=== PATIENT | female | born 1985 | race African-American/Black ===

== ENCOUNTER 2016-10-19 09:51 | Emergency (ER) | payer SELFPAY ==
[~2016-10-19] VITALS: Ht 152.4 cm; Wt 47.6 kg
[2016-10-19] MEDS ORDERED: 0.9 % SODIUM CHLORIDE 10 ML DISP.SYRIN. IV PRN (10:30)
[2016-10-19] MEDS ORDERED: HYDROmorphone 2 MG/ML VIAL IV/SQ PRN (10:30)
[2016-10-19] MEDS ORDERED: KETOROLAC TROMETHAMINE 30 MG/ML INJ. IV ONE (10:30)
[2016-10-19] MEDS ORDERED: IV NORMAL SALINE 1000ML BAG 1,000 ML IV SCH (10:30)
[2016-10-19] MEDS ORDERED: ONDANSETRON PF 4 MG/2 ML VIAL. IV ONE (10:30)
[2016-10-19 10:56] LABS: BASO % 1 % (0-3); EOS % 1 % (0-3); HEMATOCRIT 33.1 % (36.0-47.0); HEMOGLOBIN 11.2 g/dL (12.0-15.5); LYMPH # 1.9 x10^3/uL (1.0-4.8); LYMPH % 21 % (24-48); MEAN CORPUSCULAR HEMOGLOBIN 27 pg (25-35); MEAN CORPUSCULAR HGB CONC 34 g/dL (31-37); MEAN CORPUSCULAR VOLUME 79 fL (79-100); MONO % 8 % (0-9); NEUT % 70 % (31-73); PLATELET COUNT 283 x10^3/uL (140-400); WHITE BLOOD COUNT 9.2 x10^3/uL (4.0-11.0)
[2016-10-19 10:58] LABS: CREATININE 0.7 mg/dL (0.6-1.0); GFR 118.9; POTASSIUM 3.9 mmol/L (3.5-5.1)
[2016-10-19 11:04] LABS: ALBUMIN 3.6 g/dL (3.4-5.0); ALBUMIN/GLOBULIN RATIO 0.9 (1.0-1.7); TOTAL BILIRUBIN 0.2 mg/dL (0.2-1.0); TOTAL PROTEIN 7.4 g/dL (6.4-8.2)
[2016-10-19 11:24] LABS: BILIRUBIN,URINE NEGATIVE (NEG); GLUCOSE,URINE NEGATIVE (NEG); NITRITE,URINE NEGATIVE (NEG); PROTEIN,URINE NEGATIVE (NEG-TRACE); UROBILINOGEN,URINE 0.2 mg/dL (0.2 mg/dL)
[2016-10-19 11:36] LABS: BACTERIA,URINE FEW /HPF (0-FEW); RBC,URINE 0 /HPF (0-2); SQUAMOUS EPITHELIAL CELL,UR MOD /LPF; WBC,URINE OCC /HPF (0-4)
--- NOTE | 2016-10-19 11:39 | PHYS DOC ---
Past Medical History Past Medical History: No Pertinent History, Other Additional Past Medical Histor: ENDOMETRIOSIS Past Surgical History: No Surgical History Alcohol Use: Occasionally Drug Use: Marijuana Adult General Chief Complaint Chief Complaint: ABDOMINAL PAIN HPI HPI Patient is a pleasant 31-year-old non female who presents with abdominal pain that began 2 days ago prior to arrival. It is described as sharp and stabbing and the left lower quadrant discomfort progressively worse. She describes some nausea without vomiting, no diarrhea no constipation no UTI symptoms no vaginal bleeding or discharge. She describes some urgency without dysuria but frequency. She denies any vaginal trauma, back trauma or other symptoms. She also denies any fevers, chills or other symptoms. She also denies any travel, recent antibiotic use or sexual activity. Her last missed period was last week. Her pain is described as sharp and stabbing presently a 9 of 10 with no radiation. Nothing really makes it worse or better. He is not change with food, position or oral medications. Review of Systems Review of Systems Constitutional: Denies fever or chills [] Eyes: Denies change in visual acuity, redness, or eye pain [] HENT: Denies nasal congestion or sore throat [] Respiratory: Denies cough or shortness of breath [] Cardiovascular: No additional information not addressed in HPI [] GI: She complains primarily of abdominal pain with no nausea no vomiting no diarrhea no fevers or chills : He does complain of urgency and frequency without dysuria. Musculoskeletal: She does complain of left flank pain without radiation to the back. Integument: Denies rash or skin lesions [] Neurologic: Denies headache, focal weakness or sensory changes [] Endocrine: Denies polyuria or polydipsia [] Current Medications Current Medications Current Medications Medications (Trade) Dose Ordered Sig/Irma Start Time Stop Time Status Last Admin Dose Admin Hydromorphone HCl (Dilaudid) 1 mg PRN Q15MIN PRN 10/19/16 10:30 10/20/16 10:29 10/19/16 10:48 1 MG Ketorolac Tromethamine (Toradol) 30 mg 1X ONCE 10/19/16 10:30 10/19/16 10:36 DC 10/19/16 10:48 30 MG Ondansetron HCl (Zofran) 4 mg 1X ONCE 10/19/16 10:30 10/19/16 10:36 DC 10/19/16 10:48 4 MG Sodium Chloride (Normal Saline Flush) 10 ml QSHIFT PRN 10/19/16 10:30 Allergies Allergies Allergies Coded Allergies Type Severity Reaction Last Updated Verified No Known Drug Allergies 09/01/13 No Physical Exam Physical Exam Her vital signs evaluated and were reviewed by me demonstrated hypertension no other abnormalities. Constitutional: Well developed, well nourished, no acute distress, non-toxic appearance. [] HENT: Normocephalic, atraumatic, bilateral external ears normal, oropharynx moist, no oral exudates, nose normal. [] Eyes: PERRLA, EOMI, conjunctiva normal, no discharge. [] Cardiovascular:Heart rate regular rhythm, no murmur [] Lungs & Thorax: Bilateral breath sounds clear to auscultation [] Abdomen: Patient is marked tenderness to the left lower quadrant without CVA tenderness to palpation with no guarding rebound or organomegaly. She got no Baker's or McBurney's point tenderness palpation. She demonstrates no De Leon Booth sign or pulsatile mass. Skin: Warm, dry, no erythema, no rash. [] Back: No tenderness, no CVA tenderness. [] Extremities: No tenderness, no cyanosis, no clubbing, ROM intact, no edema. [] Neurologic: Alert and oriented X 3, normal motor function, normal sensory function, no focal deficits noted. [] Psychologic: She is very anxious but normal judgment. Current Patient Data Vital Signs Vital Signs Date Time Temp Pulse Resp B/P (MAP) Pulse Ox O2 Delivery O2 Flow Rate FiO2 10/19/16 10:00 97.6 98 20 138/77 (97) 98 Room Air 97.6 Lab Values Laboratory Tests Test 10/19/16 09:10 10/19/16 09:58 10/19/16 10:15 POC Urine HCG, Qualitative Hcg negative (Negative) Urine Collection Type Void Urine Color Yellow Urine Clarity Clear Urine pH 6.0 Urine Specific [place] 1.020 Urine Protein Negative mg/dL (NEG-TRACE) Urine Glucose (UA) Negative mg/dL (NEG) Urine Ketones (Stick) Negative mg/dL (NEG) Urine Blood Negative (NEG) Urine Nitrite Negative (NEG) Urine Bilirubin Negative (NEG) Urine Urobilinogen Dipstick 0.2 mg/dL (0.2 mg/dL) Urine Leukocyte Esterase Negative (NEG) Urine RBC 0 /HPF (0-2) Urine WBC Occ /HPF (0-4) Urine Squamous Epithelial Cells Mod /LPF Urine Bacteria Few /HPF (0-FEW) Urine Mucus Mod /LPF White Blood Count 9.2 x10^3/uL (4.0-11.0) Red Blood Count 4.20 x10^6/uL (3.50-5.40) Hemoglobin 11.2 g/dL (12.0-15.5) L Hematocrit 33.1 % (36.0-47.0) L Mean Corpuscular Volume 79 fL (79-100) Mean Corpuscular Hemoglobin 27 pg (25-35) Mean Corpuscular Hemoglobin Concent 34 g/dL (31-37) Red Cell Distribution Width 17.0 % (11.5-14.5) H Platelet Count 283 x10^3/uL (140-400) Neutrophils (%) (Auto) 70 % (31-73) Lymphocytes (%) (Auto) 21 % (24-48) L Monocytes (%) (Auto) 8 % (0-9) Eosinophils (%) (Auto) 1 % (0-3) Basophils (%) (Auto) 1 % (0-3) Neutrophils # (Auto) 6.4 x10^3uL (1.8-7.7) Lymphocytes # (Auto) 1.9 x10^3/uL (1.0-4.8) Monocytes # (Auto) 0.7 x10^3/uL (0.0-1.1) Eosinophils # (Auto) 0.1 x10^3/uL (0.0-0.7) Basophils # (Auto) 0.0 x10^3/uL (0.0-0.2) Sodium Level 139 mmol/L (136-145) Potassium Level 3.9 mmol/L (3.5-5.1) Chloride Level 103 mmol/L (98-107) Carbon Dioxide Level 26 mmol/L (21-32) Anion Gap 10 (6-14) Blood Urea Nitrogen 13 mg/dL (7-20) Creatinine 0.7 mg/dL (0.6-1.0) Estimated GFR (Cockcroft-Gault) 118.9 BUN/Creatinine Ratio 19 (6-20) Glucose Level 95 mg/dL (70-99) Calcium Level 9.0 mg/dL (8.5-10.1) Total Bilirubin 0.2 mg/dL (0.2-1.0) Aspartate Amino Transferase (AST) 17 U/L (15-37) Alanine Aminotransferase (ALT) 10 U/L (14-59) L Alkaline Phosphatase 63 U/L (46-116) Total Protein 7.4 g/dL (6.4-8.2) Albumin 3.6 g/dL (3.4-5.0) Albumin/Globulin Ratio 0.9 (1.0-1.7) L Lipase 142 U/L (73-393) Laboratory Tests 10/19/16 10:15 Laboratory Tests 10/19/16 10:15 EKG EKG [] Radiology/Procedures Radiology/Procedures [] [address] [place] [address] IMAGING REPORT Signed PATIENT: ISSA SHAY ACCOUNT: [id number] : 1985 LOCATION: ER AGE: 31 SEX: F EXAM STATUS: REG ER ORD. PHYSICIAN: JENNY SHEPARD MD REASON: left flank pain PROCEDURE: CT ABDOMEN PELVIS WO CONTRAST One or more of the following individualized dose reduction techniques were utilized for this examination: 1. Automated exposure control 2. Adjustment of the mA and/or kV according to patient size 3. Use of iterative reconstruction technique CT abdomen and pelvis without contrast. History: Left flank pain CT scan of the abdomen and pelvis was done without contrast. Lung bases are clear. There is no pleural effusion. There is mild scoliosis. Liver is normal in appearance. There is no calcified gallstone. Spleen and adrenal glands are unremarkable. A definite pancreatic lesion is not evident. There is no intrarenal calculus. There is no hydronephrosis. Bowel pattern is normal. Appendix is normal. There is a trace of free fluid in the pelvis which is nonspecific. There is a small follicle in the left ovary. Uterus is prominent with central decreased density in the uterus. Ultrasound would be of benefit, correlation with hCG would be of benefit. Impression: 1. No renal calculus or ureteral calculus evident. 2. Central mass or process in the uterus ultrasound would be of benefit. 3. No bowel obstruction or other acute finding noted in the abdomen or pelvis. 4. Normal appendix DICTATED and SIGNED BY: INDIA BOSE MD DATE: 10/19/16 1204 CC: JENNY SHEPRAD MD; NO PCP ~ [facility] [address] [place] [address] IMAGING REPORT Signed PATIENT: ISSA SHAY ACCOUNT: [id number] : 1985 LOCATION: ER AGE: 31 SEX: F EXAM STATUS: REG ER ORD. PHYSICIAN: JENNY SHEPARD MD REASON: uterine mass PROCEDURE: PELVIS COMPLETE Transabdominal ultrasound the pelvis. History: Uterine mass. Transit abdominal ultrasound was performed. The uterus is large measuring 11.2 x 0.6 x 7.4 cm. There is a complex uterine mass measuring 5.8 cm. Large uterine leiomyoma would be most likely. Other mass lesions would be possible such as a cancer or uterine sarcoma. Left ovary was normal measuring 3.5 x 2.1 x 2.4 cm with small follicles. There is flow in the left ovary with color imaging. Right ovary was normal measuring 1.9 x 3 x 1.9 cm with small follicles. Impression: 1. Complex uterine mass. DICTATED and SIGNED BY: INDIA BOSE MD DATE: 10/19/16 1320 CC: JENNY SHEPARD MD; NO PCP ~ Course & Med Decision Making Course & Med Decision Making Pertinent Labs and Imaging studies reviewed. (See chart for details) patient present with left lower quadrant abdominal pain after reviewing nursing notes, chief complaint and history and physical by concern primarily is be ovarian torsion, ectopic , UTI, pyonephritis, kidney stone, diverticulitis, diverticulosis, small bowel section, large bowel obstruction, bowel perforation or PID. Patient be given fluids, antiemetics, pain medications while routine laboratory work is completed. Time now is 1138Patient tells me that their symptoms given during CC are improved. After work revealed the bedside no evidence of elevated white blood cell count. Patient is not anemic. Patient's platelet count is normal. Patient' s CMP is within normal limits. Patient is not by [id number] urine test Time is now 11:45 am, recent CT scan shows no evidence of appendicitis, no evidence of cystitis, pyonephritis or bowel resection. There is no evidence of free fluid in the abdomen but there is a large mass within the uterus. I discussed this with the patient and the family I concern is still with her urgency and frequency that she has a UTI but she has systemic in amount of contamination to her urine sample. Patient is not interested giving us another sample. The course in the morning patient's workup revealed that she had a small mass within the uterus. She is not is unclear what this mass is given her age and her symptoms it is likely a uterine fibroid removed but given the duration of her symptoms and localization right where she's having the tenderness I will also send this time. Time is now 12:05 PM Patient's ultrasound revealed a large uterine fibroid complex mass with inside the uterus. She has no history of STDs, there is no elevation in white blood cell count doubt intrauterine abscess. She'll need to be referred back to OB/ [facility] for an evaluation screening for cervical carcinoma which is in the differential diagnosis for uterine masses. Impression: Abdominal pain of unclear etiology possibly secondary to uterine fibroids, UTI. Disposition: PCP follow 24-48 hours for referral to [facility] for ultrasound guided needle biopsy of mass within the uterus. Placed on Macrobid and Pyridium as well as pain medications for suspected UTI. Precautions reasons to return to the emergency department. [] Dragon Disclaimer Dragon Disclaimer This electronic medical record was generated, in whole or in part, using a voice recognition dictation system. Departure Departure Impression: Primary Impression: Uterine fibroid Additional Impressions: Abdominal pain Urinary tract infection Disposition: 01 HOME, SELF-CARE Condition: IMPROVED Referrals: NO PCP (PCP) Patient Instructions: Abdominal Pain (Nonspecific), Urinary Frequency, Urinary Tract Infection, Uterine Fibroid, [id number] Additional Instructions: This follow-up with your [facility] for continued evaluation of your uterine mass which is likely a fibroid. He should complete her course of antibiotics for suspected UTI. Please return for any new or increasing symptoms, fever greater than 102.2 despite treatment or if you have any questions or concerns. Scripts Phenazopyridine Hcl (PYRIDIUM) 200 Mg Tablet 200 MG PO TID for 3 Days, #9 TAB Prov: JENNY SHEPARD MD 10/19/16 Nitrofurantoin Monohyd/M-Cryst (MACROBID 100 MG CAPSULE) 100 Mg Capsule 1 CAP PO BID, #20 CAP Prov: JENNY SHEPARD MD 10/19/16 Hydrocodone Bit/Acetaminophen (HYDROCODONE-APAP 5-325 ) 1 Each Tablet 1-2 TAB PO PRN Q6HRS Y for PAIN for 5 Days, #10 TAB 0 Refills Prov: JENNY SHEPARD MD 10/19/16 Problem Qualifiers JENNY SHEPARD MD Oct 19, 2016 11:39
[2016-10-19 12:00] VITALS: BP 127/70
--- NOTE | 2016-10-19 12:14 | RAD ---
One or more of the following individualized dose reduction techniques were utilized for this examination: 1. Automated exposure control 2. Adjustment of the mA and/or kV according to patient size 3. Use of iterative reconstruction technique CT abdomen and pelvis without contrast. History: Left flank pain CT scan of the abdomen and pelvis was done without contrast. Lung bases are clear. There is no pleural effusion. There is mild scoliosis. Liver is normal in appearance. There is no calcified gallstone. Spleen and adrenal glands are unremarkable. A definite pancreatic lesion is not evident. There is no intrarenal calculus. There is no hydronephrosis. Bowel pattern is normal. Appendix is normal. There is a trace of free fluid in the pelvis which is nonspecific. There is a small follicle in the left ovary. Uterus is prominent with central decreased density in the uterus. Ultrasound would be of benefit, correlation with hCG would be of benefit. Impression: 1. No renal calculus or ureteral calculus evident. 2. Central mass or process in the uterus ultrasound would be of benefit. 3. No bowel obstruction or other acute finding noted in the abdomen or pelvis. 4. Normal appendix
--- NOTE | 2016-10-19 13:24 | RAD ---
Transabdominal ultrasound the pelvis. History: Uterine mass. Transit abdominal ultrasound was performed. The uterus is large measuring 11.2 x 0.6 x 7.4 cm. There is a complex uterine mass measuring 5.8 cm. Large uterine leiomyoma would be most likely. Other mass lesions would be possible such as a cancer or uterine sarcoma. Left ovary was normal measuring 3.5 x 2.1 x 2.4 cm with small follicles. There is flow in the left ovary with color imaging. Right ovary was normal measuring 1.9 x 3 x 1.9 cm with small follicles. Impression: 1. Complex uterine mass.
[2016-10-19] MEDS ORDERED: HYDR-2758 PO (13:40)
[2016-10-19] MEDS ORDERED: NITR100C62 PO (13:40)
[2016-10-19] MEDS ORDERED: PHEN-318 PO (13:40)
== END 2016-10-19 13:57 | disposition home or self-care (01) ==
LOC: ER 09:51
DX: D25.9 Leiomyoma of uterus, unspecified (principal); N39.0 Urinary tract infection, site not specified; F12.10 Cannabis abuse, uncomplicated
CPT/HCPCS: 36415; 74176; 76856; 80053; 81001; 81025; 83690; 85027; 96361; 96374; 96375; 99285; J1170; J1885; J2405; J7030

== ENCOUNTER 2017-04-05 16:54 | Emergency (ER) | payer SELFPAY, BC ==
[2017-04-05 17:23] LABS: ADD MAN DIFF? NO
[2017-04-05 17:25] LABS: BASO % 1 % (0-3); EOS # 0.1 x10^3/uL (0.0-0.7); EOS % 2 % (0-3); HEMATOCRIT 34.7 % (36.0-47.0); HEMOGLOBIN 11.2 g/dL (12.0-15.5); LYMPH # 2.4 x10^3/uL (1.0-4.8); LYMPH % 37 % (24-48); MEAN CORPUSCULAR HEMOGLOBIN 24 pg (25-35); MEAN CORPUSCULAR HGB CONC 32 g/dL (31-37); MEAN CORPUSCULAR VOLUME 76 fL (79-100); MONO # 0.5 x10^3/uL (0.0-1.1); MONO % 8 % (0-9); NEUT # 3.4 x10^3uL (1.8-7.7); NEUT % 53 % (31-73); PLATELET COUNT 312 x10^3/uL (140-400); RED CELL DISTRIBUTION WIDTH 16.1 % (11.5-14.5); WHITE BLOOD COUNT 6.4 x10^3/uL (4.0-11.0)
[2017-04-05 17:38] LABS: ANION GAP 10 (6-14); BLOOD UREA NITROGEN 13 mg/dL (7-20); CALCIUM 8.7 mg/dL (8.5-10.1); CARBON DIOXIDE 28 mmol/L (21-32); CHLORIDE 103 mmol/L (98-107); CREATININE 0.7 mg/dL (0.6-1.0); GFR 118.1; GLUCOSE 80 mg/dL (70-99); POTASSIUM 3.8 mmol/L (3.5-5.1); SODIUM 141 mmol/L (136-145)
[2017-04-05] MEDS: ONDANSETRON PF 4 MG/2 ML VIAL. IV (17:40)
[2017-04-05] MEDS: KETOROLAC 15 MG/ML VIAL. IV (17:40)
[2017-04-05] MEDS: diphenhydrAMINE 50 MG/ML VIAL IVP (17:41)
[2017-04-05 18:39] LABS: URINE HCG POC HCG NEGATIVE (Negative)
[2017-04-05 18:39] LABS: BILIRUBIN,URINE NEGATIVE (NEG); CLARITY,URINE CLOUDY; COLOR,URINE RED; GLUCOSE,URINE NEGATIVE (NEG); NITRITE,URINE NEGATIVE (NEG); PH,URINE 7.5; PROTEIN,URINE 100 mg/dL (NEG-TRACE)
[2017-04-05 18:48] LABS: BARBITURATES NEG (NEG); BENZODIAZEPINES NEG (NEG); CANNABINOIDS NEG (NEG); COCAINE NEG (NEG); METHADONE NEG (NEG); OPIATES NEG (NEG); PHENCYCLIDINE NEG (NEG)
[2017-04-05 18:49] LABS: AMPHETAMINE/METHAMPHETAMINE POS (NEG); ETHANOL, URINE POS (NEG)
[2017-04-05 18:56] LABS: BACTERIA,URINE MANY /HPF (0-FEW); SQUAMOUS EPITHELIAL CELL,UR MANY /LPF
== END 2017-04-05 19:20 | disposition home or self-care (01) ==
LOC: ER 16:54
DX: R10.30 Lower abdominal pain, unspecified (principal); N39.0 Urinary tract infection, site not specified; F12.10 Cannabis abuse, uncomplicated; Z79.899 Other long term (current) drug therapy
CPT/HCPCS: 36415; 80048; 80307; 81001; 81025; 85025; 87086; 96374; 96375; 99284-25; J1200; J1885; J2405